=== PATIENT | female | born 1940 | race Caucasian/White ===

== ENCOUNTER 2016-08-07 18:10 | Observation (INO) | payer OTHER ==
[~2016-08-07] VITALS: Ht 157.5 cm; Wt 100.0 kg
[~2016-08-07 18:10] MED LIST: ADVAIR HFA120 INHALA IH; AMLODIPINE BESY10 MG PO; AMLODIPINE PO; ASCORBIC ACID500 M3 PO; ASPIR 8181 MG PO; ASPIR-LOW81 MG PO; ATIVAN0.5 MG PO; ATORVASTATIN CA40 MG PO; B COMPLETE1 EACH PO; BUMETANIDE1 MG PO; CITALOPRAM HBR20 M1 PO; COLACE100 MG PO; COUMADIN,JANTOVE5 MG PO; CYANOCOBALAM1000 MCG PO; CYMBALTA30 MG PO; CYMBALTA60 MG PO; DESYREL100 MG PO; DOXYCYCLINE HY100 M3 PO; DUONEB 2.5-0.5 M3 ML AEROSOL; FLEXERIL10 MG PO; FLORASTOR250 MG PO; FOLIC ACID1 MG PO; FUROSEMIDE40 MG PO; GABAPENTIN400 MG PO; GLIMEPIRIDE1 MG PO; GUAIFENESIN WI120 M1 PO; IRON325 M1 PO; JANUMET 50/51 TABLET PO; JANUVIA100 MG PO; Janumet 50/500 PO; K-DUR10 MEQ PO; LASIX10 MG PO; LASIX40 MG PO; LEVOFLOXACIN750 MG PO; LISINOPRIL20 MG PO; LOPRESSOR25 MG PO; LOPRESSOR50 MG PO; LOSARTAN POTASS25 MG PO; LOSARTAN POTASS50 MG PO; LOVENOX40 MG/0.4 SC; Lasix PO; Lipitor PO; Lopressor PO; METFORMIN HCL500 MG PO; METOPROLOL TAR100 MG PO; MICRONASE5 MG PO; NITROSTAT0.4 MG SL; NORCO 10/3251 TABLET PO; NORVASC5 MG PO; NOVOLOG PE100 UNITS/ SC; Norvasc PO; OMEPRAZOLE40 M1 PO; ONE DAILY1 EAC3 PO; PAXIL PO; POTASSIUM CHLO10 ME3 PO; PRAVASTATIN SOD20 MG PO; PREDNISONE2.5 MG PO; PREDNISONE20 MG PO; PREDNISONE5 MG PO; PRINIVIL20 MG PO; PROTONIX40 MG PO; Paxil PO; Protonix PO; RANITIDINE HCL300 M1 PO; RANITIDINE HCL300 MG PO; SENNA PLUS TAB1 EACH PO; THERAGRAN1 TABLET PO; TIZANIDINE HCL2 MG PO; TOPROL XL100 MG PO; TRAMADOL HCL50 MG PO; TRAZODONE HCL100 MG PO; TRAZODONE HCL50 MG PO; Tylenol Regular Stre PO; ULTRAM50 MG PO; Ultram PO; VITAMIN B-121000 MC1 PO; VITAMIN D1000 INTUN PO; VITAMIN D1000 UNIT PO; VITAMIN D31000 UNIT PO; Vicodin,Norco 5/325 PO; Vitamin D PO; WARFARIN SODIUM5 MG PO; ZESTRIL20 MG PO; Zestril,Prinivil PO; celeXA PO; vitamin b12 PO
[2016-08-07 19:09] LABS: HEMATOCRIT 38.2 % (36.0-46.0); MCH 31.3 PG (29.0-34.0); MCHC 34.6 G/DL (30.0-36.0); MCV 90.5 FL (83-99); MEAN PLAT.VOLUME 8.8 uM^3 (9.5-12.4); PLATELET COUNT 311 K/uL (156-360); RBC DIS.WIDTH-CV 11.9 % (11.8-14.6); RBC DIS.WIDTH-SD 38.6 % (39-53); RED BLOOD COUNT 4.22 M/uL (3.80-5.20)
[2016-08-07 19:18] LABS: CHLORIDE 101 mEq/L (99-109); POTASSIUM 3.9 mEq/L (3.7-5.4); SODIUM 140 mEq/L (136-147)
[2016-08-07 19:20] LABS: GLUCOSE 117 mg/dL (70-99)
[2016-08-07 19:21] LABS: ANION GAP 14 MEQ/L (2-14)
[2016-08-07 19:24] LABS: GFR ESTIMATE (CALCULATED) 28 mL/min/
[2016-08-07 19:25] LABS: UREA NITROGEN (BUN) 32 mg/dL (9-23)
[2016-08-07 20:08] LABS: TROP-I INTERPRETATION NEGATIVE; TROPONIN-I < 0.01 ng/mL (0.0-0.30)
[2016-08-07 20:44] LABS: ADD MIUA? YES; BILIRUBIN SMALL; BLOOD NEGATIVE; COLOR YELLOW ((YELLOW)); GLUCOSE (STRIP) NEGATIVE; KETONES NEGATIVE; LEUKOCYTES MODERATE; NITRITE NEGATIVE; PH, URINE 5.5 (5-8); PROTEIN (STRIP) NEGATIVE; SPECIFIC GRAVITY 1.019 (1.000-1.030); UROBILINOGEN 0.2 MG/DL (0.2-1.0)
[2016-08-07 20:59] LABS: BACTERIA 1+; CASTS NONE SEEN /LPF; CRYSTALS NONE SEEN; EPITHELIAL CELLS 1+; MUCUS NONE SEEN; PATHOLOGICAL CAST NONE SEEN; SMALL ROUND CELL NONE SEEN; UCUL ADDED? NO; WHITE BLOOD CELLS 40-50 /HPF (0-5); YEAST-LIKE CELL NONE SEEN
[2016-08-07] MEDS ORDERED: LANTUS 10100 UNITS/ SC (21:24)
[2016-08-07] MEDS ORDERED: ULTRAM50 MG PO (21:25)
[2016-08-07] MEDS ORDERED: COLCRYS0.6 MG PO (21:25)
[2016-08-08 02:31] LABS: TROP-I INTERPRETATION NEGATIVE; TROPONIN-I < 0.01 ng/mL (0.0-0.30)
[2016-08-08 05:30] VITALS: BP 128/59
[2016-08-08 07:49] VITALS: BP 127/59; BP 132/65
[2016-08-08 08:31] LABS: POINT-OF-CARE METER ID UU14162513
[2016-08-08 09:04] LABS: ANION GAP 9 MEQ/L (2-14); CHLORIDE 108 MEQ/L (99-109); GFR ESTIMATE (CALCULATED) 43 mL/min/; GLUCOSE 104 mg/dL (70-99); POTASSIUM 3.5 MEQ/L (3.7-5.4); SAMPLE HEMOLYSIS CHECK 0; SAMPLE ICTERIC CHECK 0; SAMPLE LIPEMIA CHECK 0; SODIUM 142 MEQ/L (136-147); UREA NITROGEN (BUN) 23 mg/dL (9-23)
[2016-08-08 09:19] LABS: TROP-I INTERPRETATION NEGATIVE; TROPONIN-I < 0.01 ng/mL (0.0-0.30)
[2016-08-08 12:10] VITALS: BP 134/59
[2016-08-08 12:42] LABS: POINT-OF-CARE METER ID UU14162513
[2016-08-08] MEDS ORDERED: ASPIR-LOW81 MG PO (13:35)
[2016-08-08] MEDS ORDERED: TYLENOL REGULA325 MG PO (13:35)
[2016-08-08] MEDS ORDERED: BUMETANIDE0.5 MG PO (13:35)
[2016-08-08] MEDS ORDERED: K-DUR10 MEQ PO (13:35)
[2016-08-08] MEDS ORDERED: AMLODIPINE BESYL5 MG PO (13:35)
[2016-08-08] MEDS ORDERED: COZAAR100 MG PO (14:26)
[2016-08-08] MEDS ORDERED: LEVAQUIN500 MG PO (14:26)
== END 2016-08-08 16:03 | disposition home or self-care (01) ==
LOC: EME 18:10 → EDOF 21:38 → 5WEST 21:38
PROVIDERS: Emergency Medicine; Physician Assistant; Student in an Organized Health Care Education/Training Program
DX: R55 Syncope and collapse (principal); E86.0 Dehydration; R29.6 Repeated falls; R26.89 Other abnormalities of gait and mobility; N39.0 Urinary tract infection, site not specified; N17.9 Acute kidney failure, unspecified; I42.9 Cardiomyopathy, unspecified; E11.9 Type 2 diabetes mellitus without complications; I10 Essential (primary) hypertension; F32.9 Major depressive disorder, single episode, unspecified; F41.9 Anxiety disorder, unspecified; M19.90 Unspecified osteoarthritis, unspecified site; R53.1 Weakness; R63.4 Abnormal weight loss; Z79.4 Long term (current) use of insulin; Z88.0 Allergy status to penicillin; Z88.1 Allergy status to other antibiotic agents; Z88.8 Allergy status to other drugs, medicaments and biological substances
CPT/HCPCS: 70450; 71020; 80048; 81003; 82306; 82948; 84484; 85027; 93005; 99281; 99285; G0378; G8978 GP CH; G8979 GP CH; G8980 GP CH; G8987 GO CH; G8988 GO CH; G8989 GO CH; J1644; J1956; J7030

== ENCOUNTER → 2017-08-08 | Outpatient (CLI) | payer OTHER ==
[~2017-08-08] MED LIST changes: +AMLODIPINE BESYL5 MG PO; +BUMETANIDE0.5 MG PO; +COLCRYS0.6 MG PO; +COZAAR100 MG PO; +LANTUS 10100 UNITS/ SC; +LEVAQUIN500 MG PO; +TYLENOL REGULA325 MG PO
== END | disposition home or self-care (01) ==
DX: M17.11 Unilateral primary osteoarthritis, right knee (principal); R26.2 Difficulty in walking, not elsewhere classified; M25.561 Pain in right knee; M25.661 Stiffness of right knee, not elsewhere classified; Z74.1 Need for assistance with personal care
CPT/HCPCS: 97161 GP; 97165 GO; 97530 GP; 97535 GO; G8978 GP; G8979 GP; G8980 GP; G8987 GO; G8988 GO; G8989 GO

== ENCOUNTER 2017-08-21 22:04 | Inpatient (IN) | payer OTHER ==
[~2017-08-21] VITALS: Ht 157.5 cm; Wt 111.4 kg
[~2017-08-21 22:04] MED LIST changes: +ASPIRIN81 M2 PO; +BUMEX1 MG PO; +COZAAR50 MG PO; +KLOR-CON 1010 ME1 PO; -LANTUS 10100 UNITS/ SC; +LANTUS 3 M100 UNITS1 SC; +LIPITOR40 MG PO; +NORVASC10 MG PO; +OXYCODONE-ACET1 EACH PO; +PROVENTIL HFA6.7 GM IH
[2017-08-22] MEDS ORDERED: CYMBALTA20 MG PO (07:46)
[2017-08-22 08:05] VITALS: BP 114/91
[2017-08-22 12:19] LABS: HEMATOCRIT 35.4 % (36.0-46.0); HEMOGLOBIN 12.2 G/DL (11.9-15.5); MCH 32.1 PG (29.0-34.0); MCHC 34.5 G/DL (30.0-36.0); MCV 93.2 FL (83-99); PLATELET COUNT 238 K/uL (156-360); RBC DIS.WIDTH-CV 12.1 % (11.8-14.6); RBC DIS.WIDTH-SD 41.4 % (39-53); WHITE BLOOD COUNT 10.4 K/uL (4.1-10.2)
[2017-08-22 13:35] VITALS: BP 149/67
[2017-08-22 15:47] VITALS: BP 167/71
[2017-08-22 19:49] VITALS: BP 150/67
[2017-08-23] VITALS: BP 132/61
[2017-08-23 04:00] VITALS: BP 139/63
[2017-08-23 04:41] LABS: HEMATOCRIT 33.3 % (36.0-46.0); HEMOGLOBIN 11.4 G/DL (11.9-15.5)
[2017-08-23 04:55] LABS: CHLORIDE 101 MEQ/L (99-109); CREATININE 1.4 MG/DL (0.6-1.3); GFR ESTIMATE (CALCULATED) 39 mL/min/; GLUCOSE 200 mg/dL (70-99); POTASSIUM 4.5 MEQ/L (3.7-5.4); SODIUM 135 MEQ/L (136-147); UREA NITROGEN (BUN) 32 mg/dL (9-23)
[2017-08-23 08:01] VITALS: BP 167/69
[2017-08-23 11:44] VITALS: BP 124/58
[2017-08-23 15:25] VITALS: BP 149/69
[2017-08-23 19:40] VITALS: BP 139/63
[2017-08-24] VITALS (8 sets, daily range): BP systolic 140–185; BP diastolic 60–84
[2017-08-24 04:48] LABS: HEMATOCRIT 32.1 % (36.0-46.0); MCV 93.6 FL (83-99)
[2017-08-24 05:16] LABS: CHLORIDE 104 MEQ/L (99-109); CREATININE 1.4 MG/DL (0.6-1.3); GFR ESTIMATE (CALCULATED) 39 mL/min/; GLUCOSE 145 mg/dL (70-99); SODIUM 138 MEQ/L (136-147); UREA NITROGEN (BUN) 23 mg/dL (9-23)
[2017-08-25 04:28] VITALS: BP 146/66
[2017-08-25 08:10] VITALS: BP 140/64
[2017-08-25] MEDS ORDERED: DOCUSATE SODIU100 MG PO (08:52)
[2017-08-25] MEDS ORDERED: ENDOCET 5-3251 EACH PO (08:52)
[2017-08-25] MEDS ORDERED: LOVENOX40 MG/0.4 SC (08:52)
== END 2017-08-25 11:42 | DRG 470 ==
LOC: ENRESERV 22:04 → 2SOUTH 08-22 06:36 → 3WEST 08-22 06:36 → ENRESERV 08-22 08:32 → 2SOUTH 08-22 08:55 → ENRESERV 08-22 10:04 → 3WEST 08-22 13:21 → ENRESERV 08-24 07:48 → 3EAST 08-24 17:54
PROVIDERS: Orthopaedic Surgery; Physician Assistant
PROC: 0SRC0J9 Replacement of Right Knee Joint with Synthetic Substitute, Cemented, Open Approach (ICD-10-PCS; principal; 2017-08-22)
DX: M17.11 Unilateral primary osteoarthritis, right knee (principal); I11.0 Hypertensive heart disease with heart failure; I50.9 Heart failure, unspecified; I42.9 Cardiomyopathy, unspecified; E11.42 Type 2 diabetes mellitus with diabetic polyneuropathy; E87.6 Hypokalemia; D72.829 Elevated white blood cell count, unspecified; E78.5 Hyperlipidemia, unspecified; K21.9 Gastro-esophageal reflux disease without esophagitis; G47.33 Obstructive sleep apnea (adult) (pediatric); J45.20 Mild intermittent asthma, uncomplicated; G47.30 Sleep apnea, unspecified; E55.9 Vitamin D deficiency, unspecified; F41.8 Other specified anxiety disorders; G89.29 Other chronic pain; M54.9 Dorsalgia, unspecified; Z60.2 Problems related to living alone; E66.01 Morbid (severe) obesity due to excess calories; Z68.41 Body mass index [BMI] 40.0-44.9, adult; Z79.4 Long term (current) use of insulin; Z88.0 Allergy status to penicillin
CPT/HCPCS: 71045; 73560; 80048; 82948; 85014; 85018; 85027; 97530 GP; 99202; C1713; J0330; J1100; J1170; J1650; J1815; J1885; J2250; J2405; J2710; J2795; J3010; J7050

== ENCOUNTER 2017-08-30 23:57 | Emergency (ER) | payer OTHER ==
[~2017-08-30] VITALS: Ht 157.5 cm; Wt 114.7 kg
[~2017-08-30 23:57] MED LIST changes: +CYMBALTA20 MG PO; +DOCUSATE SODIU100 MG PO; +ENDOCET 5-3251 EACH PO
[2017-08-31 01:02] LABS: BASOPHIL (%) 0.4 % (0-1); EOSINOPHIL (%) 1.9 % (0-5); EOSINOPHIL COUNT 0.2 K/uL (0-0.3); HEMATOCRIT 30.7 % (36.0-46.0); HEMOGLOBIN 10.9 G/DL (11.9-15.5); IMMATURE GRANULOCYTE (%) 1.1 % (0.0-0.7); LYMPHOCYTE (%) 22.6 % (15-42); LYMPHOCYTE COUNT 2.4 K/uL (1.0-2.8); MCH 32.3 PG (29.0-34.0); MCHC 35.5 G/DL (30.0-36.0); MCV 91.1 FL (83-99); MONOCYTE (%) 9.9 % (3-12); NEUTROPHIL (%) 64.1 % (45-76); NEUTROPHIL COUNT 6.7 K/uL (1.8-6.4); PLATELET COUNT 357 K/uL (156-360); RBC DIS.WIDTH-CV 11.8 % (11.8-14.6); RBC DIS.WIDTH-SD 38.8 % (39-53); RED BLOOD COUNT 3.37 M/uL (3.80-5.20); WHITE BLOOD COUNT 10.4 K/uL (4.1-10.2)
[2017-08-31 01:10] LABS: INTER. NORMALIZED RATIO 1.1
[2017-08-31 01:12] LABS: ALBUMIN 3.5 g/dL (3.2-4.8); CHLORIDE 105 mEq/L (99-109); POTASSIUM 4.2 mEq/L (3.7-5.4); SODIUM 136 mEq/L (136-147)
[2017-08-31 01:13] LABS: PTT 30.4 SEC (25-37)
[2017-08-31 01:13] LABS: MAGNESIUM 1.5 mg/dL (1.3-2.7)
[2017-08-31 01:14] LABS: GLUCOSE 130 mg/dL (70-99); TOTAL PROTEIN 6.6 g/dL (6.4-8.3)
[2017-08-31 01:16] LABS: TOTAL BILIRUBIN 0.9 mg/dL (0.0-1.0)
[2017-08-31 01:18] LABS: ALKALINE PHOSPHATASE 120 IU/L (3-129); CREATININE 1.3 mg/dL (0.6-1.3); GFR ESTIMATE (CALCULATED) 43 mL/min/
[2017-08-31 01:19] LABS: UREA NITROGEN (BUN) 23 mg/dL (9-23)
[2017-08-31 01:20] LABS: AST (GOT) 25 IU/L (2-34)
[2017-08-31 01:21] LABS: ALT (GPT) 20 IU/L (3-49); CREATINE KINASE 124 IU/L (1-294); TOTAL CK 124 IU/L (1-294)
[2017-08-31 01:23] LABS: TROP-I INTERPRETATION NEGATIVE; TROPONIN-I 0.01 ng/mL (0.0-0.30)
[2017-08-31 01:26] LABS: CK-MB 1.2 ng/mL (0.0-4.9)
[2017-08-31] MEDS ORDERED: ZOFRAN ODT4 MG PO (05:13)
[2017-08-31 06:35] VITALS: BP 145/60
== END 2017-08-31 06:38 ==
LOC: EME → EDBD 23:57 → EME 23:57
PROVIDERS: Emergency Medicine
DX: K80.50 Calculus of bile duct without cholangitis or cholecystitis without obstruction (principal); R07.9 Chest pain, unspecified; E04.1 Nontoxic single thyroid nodule; I50.9 Heart failure, unspecified; E11.9 Type 2 diabetes mellitus without complications; Z79.4 Long term (current) use of insulin; E78.5 Hyperlipidemia, unspecified; Z96.651 Presence of right artificial knee joint; Z79.01 Long term (current) use of anticoagulants; I25.10 Atherosclerotic heart disease of native coronary artery without angina pectoris; J45.909 Unspecified asthma, uncomplicated; F32.9 Major depressive disorder, single episode, unspecified; F41.9 Anxiety disorder, unspecified; Z95.5 Presence of coronary angioplasty implant and graft; Z88.8 Allergy status to other drugs, medicaments and biological substances; Z88.0 Allergy status to penicillin
CPT/HCPCS: 71045; 71275; 76705; 80053; 82550; 82553; 83735; 84484; 85025; 85610; 85730; 93005; 99281; 99285; J3010

== ENCOUNTER 2018-03-23 07:11 | Emergency (ER) | payer OTHER ==
[~2018-03-23] VITALS: Ht 157.5 cm; Wt 77.5 kg
[~2018-03-23 07:11] MED LIST changes: +ZOFRAN ODT4 MG PO
[2018-03-23 07:48] LABS: HEMATOCRIT 36.6 % (36.0-46.0); HEMOGLOBIN 12.6 G/DL (11.9-15.5); MCH 30.6 PG (29.0-34.0); MCHC 34.4 G/DL (30.0-36.0); MCV 88.8 FL (83-99); PLATELET COUNT 291 K/uL (156-360); RBC DIS.WIDTH-CV 12.4 % (11.8-14.6); RBC DIS.WIDTH-SD 40.8 % (39-53); RED BLOOD COUNT 4.12 M/uL (3.80-5.20); WHITE BLOOD COUNT 8.5 K/uL (4.1-10.2)
[2018-03-23 08:18] LABS: TROP-I INTERPRETATION NEGATIVE; TROPONIN-I 0.02 ng/mL (0.0-0.30)
[2018-03-23 08:24] LABS: CHLORIDE 101 MEQ/L (99-109); POTASSIUM 3.7 MEQ/L (3.7-5.4); SODIUM 141 MEQ/L (136-147)
[2018-03-23 08:30] LABS: CREATININE 1.7 MG/DL (0.6-1.3); GFR ESTIMATE (CALCULATED) 31 mL/min/; GLUCOSE 160 mg/dL (70-99); UREA NITROGEN (BUN) 29 mg/dL (9-23)
[2018-03-23 11:39] LABS: TROP-I INTERPRETATION NEGATIVE; TROPONIN-I < 0.01 ng/mL (0.0-0.30)
[2018-03-23 13:21] VITALS: BP 127/54
== END 2018-03-23 13:22 | disposition home or self-care (01) ==
LOC: EME 07:11
PROVIDERS: Emergency Medicine
DX: R07.89 Other chest pain (principal); E86.0 Dehydration; R06.02 Shortness of breath; R42 Dizziness and giddiness; R19.7 Diarrhea, unspecified; I44.7 Left bundle-branch block, unspecified; H92.09 Otalgia, unspecified ear; I11.0 Hypertensive heart disease with heart failure; I50.9 Heart failure, unspecified; E78.5 Hyperlipidemia, unspecified; E11.9 Type 2 diabetes mellitus without complications; Z79.84 Long term (current) use of oral hypoglycemic drugs; Z88.0 Allergy status to penicillin
CPT/HCPCS: 71045; 80048; 83880; 84484; 85027; 93005; 99281; 99285; J7030